=== PATIENT | female | born 1945 | race Caucasian/White ===

== ENCOUNTER 2024-06-19 13:00 | Observation (INO) | payer MEDICARE ==
[2024-06-26] MEDS ORDERED: Acetaminophen 325 MG TAB ONE (11:43)
[2024-06-26] MEDS ORDERED: Ketorolac Tromethamine 30 MG (1 mL) VIAL ONE (11:43)
[2024-06-26] MEDS ORDERED: Gabapentin 300 MG CAP ONE (11:43)
[2024-06-26] MEDS ORDERED: Ropivacaine 0.5% HCl/PF (150 MG/30 ML VIAL) ONE (12:07)
[2024-06-26] MEDS ORDERED: CEFAZOLIN 2 GM VIAL ONE (12:24)
[2024-06-26] MEDS ORDERED: traMADol HCl 50 MG TAB PO PRN (12:41)
[2024-06-26] MEDS ORDERED: Acetaminophen 325 MG TAB PO PRN (12:41)
[2024-06-26] MEDS ORDERED: Ondansetron PF 4 MG/2 ML Vial IVP PRN (12:41)
[2024-06-26] MEDS ORDERED: diphenhydrAMINE 25 MG CAP PO PRN (13:30)
[2024-06-26] MEDS ORDERED: Morphine 10 MG/ML VIAL ONE (14:38)
[2024-06-26] MEDS ORDERED: Ropivacaine 0.2% HCl/PF (40 MG/20 ML VIAL) ONE (14:38)
[2024-06-26] MEDS ORDERED: Vancomycin 1 GM/200 ML (FROZEN) BAG ONE (14:38)
[2024-06-26] MEDS ORDERED: Tranexamic Acid 1,000 MG/10 ML VIAL ONE (14:38)
[2024-06-26] MEDS ORDERED: EPINEPHrine 1 MG/ML AMP ONE (14:38)
[2024-06-26] MEDS ORDERED: hydrALAZINE 20 MG/ML VIAL ONE (15:27)
[2024-06-26] MEDS ORDERED: fentaNYL 50 mcg/mL 1 mL Vial ONE ×2 (15:50→16:14)
[2024-06-26 17:04] VITALS: BMI 34.7
[2024-06-26] MEDS: Ketorolac Tromethamine 30 MG (1 mL) VIAL IVP SCH (17:59)
[2024-06-26] MEDS: Sodium Chloride 0.9% 1,000 ML IV SCH (18:00)
[2024-06-26] MEDS: Acetaminophen 325 MG TAB PO SCH (20:22)
[2024-06-26] MEDS: Pregabalin 75 MG CAP PO SCH (20:23)
[2024-06-26] MEDS: Famotidine/PF 20 mg/2ml Vial SLOW IVP SCH (20:24)
[2024-06-26] MEDS: Ezetimibe 10 MG TAB PO SCH (20:24)
[2024-06-26] MEDS: Atorvastatin Calcium 40 MG TAB PO SCH (20:24)
[2024-06-26] MEDS: Magnesium Oxide 400 MG TAB PO SCH (20:24)
[2024-06-26] MEDS: CEFAZOLIN 2 GM in Sodium Chloride 0.9% 100 ML IVPB SCH (20:24)
[2024-06-27] MEDS: traMADol HCl 50 MG TAB PO PRN (04:31)
[2024-06-27] MEDS: Levothyroxine Sodium 100 MCG TAB PO SCH (05:57)
[2024-06-27] MEDS ORDERED: Zinc Gluconate 50 MG TAB PO SCH (09:00)
[2024-06-27] MEDS ORDERED: ZINC GLUCONATE DT SCH (09:00)
[2024-06-27] MEDS: Losartan 50 MG TAB PO SCH (09:05)
[2024-06-27] MEDS: Cyanocobalamin (Vitamin B-12) 1,000 MCG TAB PO SCH (09:05)
[2024-06-27] MEDS: Aspirin 325 mg Enteric Coated Tablet PO SCH (09:05)
[2024-06-27] MEDS: Furosemide 20 MG TAB PO SCH (09:06)
[2024-06-27] MEDS: Multivit, Therapeutic 1 TAB PO SCH (09:06)
[2024-06-27] MEDS: Pantoprazole DR 40 MG TAB PO SCH (09:07)
[2024-06-27] MEDS: Loratadine 10 MG TAB PO SCH (09:07)
[2024-06-27] MEDS: Vitamin E 400 UNITS CAP PO SCH (09:07)
[2024-06-27] MEDS: Ascorbic Acid 500 mg Chewable Tablet PO SCH (09:07)
[2024-06-27 11:54] VITALS: BP 140/72; TEMP 97.8
[2024-06-27] MEDS: ZINC GLUCONATE DT SCH (16:25)
[2024-06-28] MEDS ORDERED: Famotidine/PF 20 mg/2ml Vial SLOW IVP SCH (09:00)
== END 2024-06-27 15:35 | disposition home or self-care (01) ==
LOC: INTOOBSV 06-26 10:53 → CSHERHOLD 06-26 10:53 → EDSTATUS 06-26 13:00 → CSHTELE 06-26 16:57
PROVIDERS: ADMIT Orthopaedic Surgery; ATTEND Orthopaedic Surgery
PROC: 0RPJ0J6 Removal of Synthetic Substitute from Right Shoulder Joint, Humeral Surface, Open Approach (ICD-10-PCS; principal; 2024-06-26)
PROC: 0RRJ0J6 Replacement of Right Shoulder Joint with Synthetic Substitute, Humeral Surface, Open Approach (ICD-10-PCS; 2024-06-26)
PROC: 3E0T3BZ Introduction of Anesthetic Agent into Peripheral Nerves and Plexi, Percutaneous Approach (ICD-10-PCS; 2024-06-26)
DX: T84.84XA Pain due to internal orthopedic prosthetic devices, implants and grafts, initial encounter (principal); I11.9 Hypertensive heart disease without heart failure; I25.10 Atherosclerotic heart disease of native coronary artery without angina pectoris; E78.5 Hyperlipidemia, unspecified; E03.9 Hypothyroidism, unspecified; E11.9 Type 2 diabetes mellitus without complications; M45.9 Ankylosing spondylitis of unspecified sites in spine; M19.011 Primary osteoarthritis, right shoulder; Z95.1 Presence of aortocoronary bypass graft; Z96.611 Presence of right artificial shoulder joint; Z96.612 Presence of left artificial shoulder joint; Z95.5 Presence of coronary angioplasty implant and graft; Z96.653 Presence of artificial knee joint, bilateral; Z90.710 Acquired absence of both cervix and uterus; Z88.8 Allergy status to other drugs, medicaments and biological substances; Z88.1 Allergy status to other antibiotic agents; Z88.2 Allergy status to sulfonamides; Z79.890 Hormone replacement therapy; Z91.048 Other nonmedicinal substance allergy status; Z79.82 Long term (current) use of aspirin; Z79.899 Other long term (current) drug therapy; Y83.1 Surgical operation with implant of artificial internal device as the cause of abnormal reaction of the patient, or of later complication, without mention of misadventure at the time of the procedure
CPT/HCPCS: 23474; 64415; 73030 ×2; 82962; 87070 ×2; 87075; 87102; 87116; 87205; 87206 ×2; 97116; 97535; C1713 ×2; C1762; C1776 ×3; J0171; J0360; J1885 ×2; J2270; J2795 ×2; J3010; J3370; J3490 ×2; J7030 ×2; 36416

== ENCOUNTER 2024-06-19 13:05 | Outpatient (CLI) | payer MEDICARE ==
[2024-06-19 14:24] LABS: Hematocrit 39.7 % (34.9-44.5); Hemoglobin 12.9 g/dL (12.0-15.5); Mean Corpuscular HGB CONC 32.5 g/dL (32.0-36.0); Mean Corpuscular Hemoglobin 29.5 pg (27.0-33.0); Mean Corpuscular Volume 90.6 fL (81.6-98.3); Mean Platelet Volume 10.7 fL (7.4-10.4); Platelet Count 238 10x3/uL (150-450); RBC Distribution Width 12.8 % (11.5-14.5); Red Blood Cell (RBC) Count 4.38 10x6/uL (3.90-5.03); White Blood Cell (WBC) Count 10.6 10x3/uL (3.5-10.5)
[2024-06-19 14:39] LABS: Anion Gap 16 mmol/L (10-20); BUN (Urea Nitrogen) 21 mg/dL (9.8-20.1); Calc. Creatinine Clearance 0 mL/min (70-130); Calcium 9.5 mg/dL (7.8-10.44); Carbon Dioxide 20 mmol/L (23-31); Chloride 109 mmol/L (98-107); Estimated GFR 46; Glucose 153 mg/dL (83-110); Potassium 4.6 mmol/L (3.5-5.1); Sodium 140 mmol/L (136-145)
[2024-06-19 20:18] LABS: Hemoglobin A1c 6.6 % (4.0-6.0)
== END 2024-06-19 13:06 | disposition home or self-care (01) ==
LOC: CSHLAB 13:05
PROVIDERS: ATTEND Orthopaedic Surgery
DX: Z01.812 Encounter for preprocedural laboratory examination (principal); M19.011 Primary osteoarthritis, right shoulder; Z96.611 Presence of right artificial shoulder joint
CPT/HCPCS: 80048; 82306; 83036; 85027; 87081